=== PATIENT | male | born 1985 | race Caucasian/White ===

== ENCOUNTER → 2018-02-10 | Outpatient (CLI) | payer BC ==
--- NOTE | 2018-02-10 13:09 | XR ---
EXAMINATION TYPE: XR foot complete LT DATE OF EXAM: 02/10/2018 COMPARISON: NONE HISTORY: Pain TECHNIQUE: Three views are submitted. FINDINGS: The osseous structures are intact. There is no acute fracture or dislocation. Arthropathy of the f irst MTP joint. No evidence of metallic density. IMPRESSION: 1. No acute fracture or dislocation. If symptoms persist, follow-up exam in 7 to 10 days could be ob tained. 2. No metallic density identified. 3. Could not exclude a coalition of the third metatarsal and cuneiform bone.
== END | disposition home or self-care (01) ==
LOC: RADXRMAIN 12:27
PROVIDERS: ATTEND Nurse Practitioner Adult Health
DX: M79.675 Pain in left toe(s) (principal)